=== PATIENT | female | born 1935 | race Caucasian/White ===

== ENCOUNTER 2018-03-12 16:26 | Emergency (ER) | payer MEDICARE ==
[~2018-03-12] VITALS: Ht 165.1 cm; Wt 65.9 kg
[2018-03-12] MEDS ORDERED: NORCO 325 MG-51 TA1 PO ×2 (16:35→17:24)
[2018-03-12] MEDS ORDERED: DIPHENOX/ATROPI1 TAB PO (16:35)
[2018-03-12] MEDS ORDERED: ALEVE220 M1 PO (16:35)
[2018-03-12] MEDS ORDERED: MEMANTINE HCL10 MG PO (16:36)
[2018-03-12] MEDS ORDERED: DULOXETINE60 MG PO (16:36)
[2018-03-12] MEDS ORDERED: SUNMARK ENTERI325 MG PO (16:36)
[2018-03-12 17:35] VITALS: BP 153/90
== END 2018-03-12 17:35 | disposition home or self-care (01) ==
LOC: ED 16:26
DX: S22.31XA Fracture of one rib, right side, initial encounter for closed fracture (principal); W18.39XA Other fall on same level, initial encounter; Y92.002 Bathroom of unspecified non-institutional (private) residence as the place of occurrence of the external cause; J44.9 Chronic obstructive pulmonary disease, unspecified